=== PATIENT | female | born 1970 | race Caucasian/White ===

== ENCOUNTER → 2021-12-26 | Outpatient (CLI) | payer BC | LOC: MAMO 14:58 | DX: Z12.31 Encounter for screening mammogram for malignant neoplasm of breast (principal) | CPT/HCPCS: 77063; 77067 ==

== ENCOUNTER → 2022-06-02 | Outpatient (CLI) | payer BC | LOC: HEART 5 15:09 | DX: R06.2 Wheezing (principal); E88.01 Alpha-1-antitrypsin deficiency | CPT/HCPCS: 94010; 94729 ==